=== PATIENT | female | born 1995 | race Caucasian/White ===

== ENCOUNTER 2018-09-16 13:02 | Day surgery (SDC) | payer OTHER, SELFPAY ==
[2018-09-06 12:29] VITALS: BMI 26.7
--- NOTE | 2018-09-16 | PATH_ITS ---
[facility] Accession Number: [id number] . 01 Material submitted: . PART A: cervix - LEEP @12:00 PART B: cervix - LEEP @6:00 PART C: endocervix - ENDOCERVICAL CURRETTINGS . 02 Diagnosis: A. Cervical LEEP Biopsy at 12 o'clock: Focal areas of high-grade squamous intraepithelial lesion (RADHA-2) with focal extension to the endocervical inked margin (no RADHA-3 identified). . B. Cervical LEEP Biopsy at 6 o'clock: High-grade squamous intraepithelial lesion (RADHA-2) with focal extension to the endocervical inked margin (no RADHA-3 identified). . C. Endocervical Curettings: Multiple fragments of endocervical tissue, negative for atypia. Single fragment of squamous epithelium with changes of cervical intraepithelial neoplasia but of insufficient size for more specific classification. [facility]/09/18/2018 . 02 Electronically signed: . Jeff Sharma MD, Pathologist NPI- [id number] . 01 Gross description: . (A) Received in formalin, labeled LEEP @ 12 o'clock, is a cervical LEEP excision received in two pieces (piece #1-1.3 x 1.0 cm, 0.5 cm in depth; piece #2-1.2 x 1.1 cm, 0.2 cm in depth) with gimenez-white smooth shiny mucosa. Piece #1 contains a two-tailed black suture indicating 12 o'clock. No nodules, masses or lesions are identified. The endocervical and ectocervical margins cannot be determined; therefore, the resection margins are inked blue. Piece #1 is serially sectioned and entirely submitted in cassette A1 and piece #2 in A2. (B) Received in formalin, labeled LEEP 6 o'clock, is an oriented piece of cervical tissue (1.7 x 1.0 cm, 0.2 cm in depth) with gimenez-pink, smooth shiny mucosa. No nodules, masses or lesions are identified. The ectocervical and endocervical margins cannot be determined; therefore, the resection margin inked blue. Serially sectioned and entirely submitted in cassette B1. (C) Received in formalin, labeled ECC, is turbid mucoid material containing multiple fragments of red-brown tissue (2.8 x 2.3 x 0.2 cm in aggregate). Filtered and entirely submitted in cassette C1. ([id number]) /MRV . 02 Pathologist provided ICD-10: N87.1 . 02 CPT . 034424, [id number], [id number] Performed at: 01 [facility] [address] [place] [id number] MD Dominic Freitas MD Phone: [phone] Performed at: 02 [facility] [place] [address] [place], [place] [id number] MD Luly Calhoun MD Phone: [phone]
[2018-09-16 13:34] VITALS: BP 133/87; PULSE 95; RESP 15; TEMP 36.8; O2SAT 99; BMI 26.1
[2018-09-16] MEDS: LACTATED RINGERS 1,000 ML 42 ML IV (13:47)
--- NOTE | 2018-09-16 14:00 | SUR.OPER ---
Lithotomy on padded OR bed, head on pillow, arms secured on padded arm boards at <90 degrees abduction. Legs secured in padded yellow fins stirrups.
--- NOTE | 2018-09-16 14:01 | PM.PREOP ---
Pre-operative Note Interval Note History & Physical reviewed/Exam performed by Physician: Yes Changes to H&P: No
--- NOTE | 2018-09-16 14:04 | P.HPOB_ITS ---
History of Present Illness Reason for admission: other (RADHA-III of the cervix) Narrative: Luis Miguel Mchugh is a 23 year old female here for LEEP procedure [facility] Medical History (Updated 09/16/18 @ 14:03 by Brianna Ayoub MD) Acne (Acute) Back pain (Acute) Chlamydia (Acute) Shoulder pain (Acute) Surgical History (Updated 09/06/18 @ 12:29 by Chelsy Sevilla RN) History of tonsillectomy (~2002) Family History (Updated 09/30/15 @ 00:00 by Conversion Provider) Father Age: 47 Hypertension High cholesterol Grandfather Age: 74 Skin cancer Heart disease Hypertension High cholesterol Grandmother Age: 73 Sarcoidosis Mental health problem [place]'s disease Mother Age: 51 Hypertension Grandfather Heart disease Skin cancer Hypertension High cholesterol Grandmother Age: 80 Diabetes mellitus Social History household members: family Smoking Status: Never smoker alcohol intake: current Family History (Updated 09/30/15 @ 00:00 by Conversion Provider) Father Age: 47 Hypertension High cholesterol Grandfather Age: 74 Skin cancer Heart disease Hypertension High cholesterol Grandmother Age: 73 Sarcoidosis Mental health problem [place]'s disease Mother Age: 51 Hypertension Grandfather Heart disease Skin cancer Hypertension High cholesterol Grandmother Age: 80 Diabetes mellitus Social History household members: family Smoking Status: Never smoker alcohol intake: current Meds Home Medications Medication Instructions Recorded Confirmed Type norgestimate-ethinyl estradiol 1 tab PO QDAY #3 pac 08/26/18 09/16/18 Rx [Tri-Linyah] fluticasone propionate 1 spray INTRANASAL BID 09/16/18 09/16/18 History multivitamin 1 cap PO DAILY 09/16/18 09/16/18 History Allergies Allergy/AdvReac Type Severity Reaction Status Date / Time No Known Drug Allergies Allergy Verified 08/30/18 15:56 Review of Systems Review of Systems All systems reviewed & are unremarkable except as noted in HPI and below Exam Vital Signs (past 8 hours): - 09/16/18 13:34 Temperature 98.2 F Pulse Rate 95 H Respiratory Rate 15 Blood Pressure 133/87 Pulse Oximetry 99 Oxygen Delivery Method Room Air Narrative Exam Narrative: HEENT exam within normal limits. Lungs are clear to auscultation percussion. Heart is regular rate and rhythm no S3-S4 or murmurs. Abdomen is soft, nontender. pelvic exam will be exam under anesthesia her pelvic exam performed on 08/30/2018 showed normal external genitalia, vagina, cervix. 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 consent form was signed. Risks of bleeding infection and problems with infertility or delivery discussed with the patient. Consent form was signed and her questions answered. Time Spent With Patient Time with patient: less than 15 minutes
[2018-09-16] MEDS: BUPIVACAINE 0.5% W/ EPI (PF) VIAL 30 ML INJ (14:25)
[2018-09-16] MEDS: POTASSIUM IODIDE/IODINE 473 ML SOLUTION TOP (14:33)
--- NOTE | 2018-09-16 14:38 | PM.OP.1 ---
Operative Date/Time/Diagnoses Date of procedure: 09/16/18 Time of procedure: 14:38 Pre-op diagnosis: RADHA-III of the cervix Post-op diagnosis: same Procedure & Clinicians Procedure: LEEP with ECC Same procedure as scheduled: Yes Indications: RADHA-III of the cervix by colpo directed biopsy Surgeon: Brianna Ayoub Click Yes if Unassisted: Yes Anesthesia Type: General Operative Notes Findings: Normal exam under anesthesia Lugol non-staining area circumferentially around the os Closure Type: not applicable Specimen(s): other (LEEP at 12:00, 6:00, ECC) Estimated Blood Loss (mL): 1 Blood products transfused: none Procedure in detail: Patient was brought to the operating room she underwent general. She was placed in low stirrups. A coated bivalve speculum was placed into the vagina. The cervix was injected with 0.5% Marcaine with epinephrine. A coated single-tooth tenaculum was placed on the anterior lip of the cervix. The cervix was stained with Lugol's. The loop set at 60 W of cutting was used to remove the entire squamocolumnar junction which was done in 2 sections at 12 and 6:00. ECC was performed. The tissue was cauterized external to the LEEP with ball cautery to extend the treatment zone. The patient went to recovery room in good condition. Counts of instruments and sponges were correct. The tissue was sent for pathology. Complications: none Condition: stable Disposition: same day surgery Plan for aftercare: Home when awake and stable. Treatment and follow-up based on biopsy results.
[2018-09-16 14:41] VITALS: BP 116/82; PULSE 142; RESP 22; TEMP 36.6; O2SAT 90
[2018-09-16 14:46] VITALS: BP 126/78; PULSE 132; RESP 13; O2SAT 98
--- NOTE | 2018-09-16 14:49 | SUR.PHASEI ---
Pt woke coughing, clearing secretions well. Cough has subsided at this time.
[2018-09-16 14:51] VITALS: BP 133/86; PULSE 121; RESP 12; O2SAT 100
--- NOTE | 2018-09-16 14:59 | SUR.PHASEI ---
Pt reported anxiety, tea provided, pt reported anxiety improved.
[2018-09-16 15:01] VITALS: BP 138/93; PULSE 107; RESP 12; TEMP 37.4; O2SAT 98
[2018-09-16 15:21] VITALS: BP 135/87; PULSE 100; TEMP 36.7; O2SAT 97
== END 2018-09-16 15:24 | disposition home or self-care (01) ==
PROVIDERS: PCP Specialist; Visit Provider Specialist
PROC: 0UBC7ZZ Excision of Cervix, Via Natural or Artificial Opening (ICD-10-PCS; CPT 57522; principal; 2018-09-16 14:30)
DX: N87.1 Moderate cervical dysplasia (principal)
CPT/HCPCS: 57522; J1100; J1885; J2405; J2704; J3010